=== PATIENT | female | born 1950 | race Caucasian/White ===

== ENCOUNTER 2017-10-05 11:45 | Inpatient (IN) | payer OTHER ==
[~2017-10-05] VITALS: Ht 160 cm; Wt 70.8 kg
[~2017-10-05 11:45] MED LIST: ADVAIR 2501 DISK W/1 IH; ASA81 MG PO; AVAPRO75 MG PO; CLONAZEPAM1 MG PO; COD LIVER OIL1 EACH PO; DOCUSATE SODIU100 MG PO; HUMULIN N100 U/ML SC; METHYLPRED4 MG/DOSE- PO; NASACORT16.9 ML NS; NEURONTIN PO; OMEPRAZOLE20 M1 PO; OSTERA TABLET1 EACH PO; PERCOCET 5/3251 TAB PO; PROAIR HFA8.5 GM IH; SINGULAIR10 MG PO; VIT E PO; ZOCOR40 MG PO
[2017-10-05] MEDS ORDERED: ZANTAC150 M3 PO (14:06)
[2017-10-05] MEDS ORDERED: GLIMEPIRIDE1 MG PO (14:06)
[2017-10-08] MEDS ORDERED: PERCOCET 5-3251 EACH PO (16:21)
[2017-10-08] MEDS ORDERED: NEURONTIN800 MG PO (16:21)
[2017-10-08] MEDS ORDERED: AMOX1TAB12 PO (16:21)
[2017-10-08] MEDS ORDERED: CLONAZEPAM1 MG PO (16:21)
[2017-10-08] MEDS ORDERED: COLACE100 MG PO (16:21)
== END 2017-10-09 14:48 | disposition home or self-care (01) | DRG 520 ==
LOC: PED 10-08 04:45 → O/R 10-08 04:45 → SURH 10-08 10:30 → PED 10-08 16:57
PROVIDERS: Orthopaedic Surgery Orthopaedic Surgery of the Spine
PROC: 0ST20ZZ Resection of Lumbar Vertebral Disc, Open Approach (ICD-10-PCS; 2017-10-08)
PROC: 0SP00AZ Removal of Interbody Fusion Device from Lumbar Vertebral Joint, Open Approach (ICD-10-PCS; 2017-10-08)
PROC: 00NY0ZZ Release Lumbar Spinal Cord, Open Approach (ICD-10-PCS; principal; 2017-10-08 10:30)
DX: M43.16 Spondylolisthesis, lumbar region (principal); E03.8 Other specified hypothyroidism; K21.9 Gastro-esophageal reflux disease without esophagitis; E11.9 Type 2 diabetes mellitus without complications; M48.07 Spinal stenosis, lumbosacral region; N18.9 Chronic kidney disease, unspecified; I12.9 Hypertensive chronic kidney disease with stage 1 through stage 4 chronic kidney disease, or unspecified chronic kidney disease